=== PATIENT | male | born 1955 | race Caucasian/White ===

== ENCOUNTER → 2018-12-05 | Outpatient (CLI) | payer OTHER ==
--- NOTE | 2018-12-05 14:18 | CTL ---
EXAMINATION TYPE: CT Low Dose Lung DATE OF EXAM ORDERED: 12/05/2018 HISTORY: Personal history tobacco use. Lung cancer screening CT DLP: [address] CTDI: 3.14 mGy Automated exposure control for dose reduction was used. Axial imaging performed, patient unable to li e on his back, some patient was scanned on his side. SCREENING VISIT: 1 COMPARISON: None TECHNIQUE: Low dose computed tomography scan was performed through the chest at 1 mm thick sections a nd reconstructed images in the coronal plane at [address] DIAGNOSTIC QUALITY: Limited, but interpretable FINDINGS: LUNG NODULES: Present, detailed below: 4 mm right upper lobe nodule on axial image 55 and the subpleu ral location anteriorly, possibly axial image 59 similar-appearing nodule as on axial image 50 in the right upper lobe. LUNGS: COPD: Severity: Mild Fibrosis: Severity: None Lymph nodes: Nonenlarged Other findings: Posterior diaphragmatic hernias on the right and left contain fat RIGHT PLEURAL SPACE: Effusion: None Calcification: None Thickening: None Pneumothorax: None LEFT PLEURAL SPACE: Effusion: None Calcification: None Thickening: None Pneumothorax: None HEART: Heart Size: Normal Coronary calcification: Moderate Pericardial effusion: None OTHER FINDINGS: Upper abdomen: Atheromatous aorta. Bony thorax: Degenerative disc changes in the visualized spine. Supraclavicular region: Unremarkable Other: IMPRESSION: Nodules in the right upper lobe are under 5 mm in size and are low risk, benign appearanc e FOLLOW UP CT CHEST RECOMMENDATION: [address] LUNG RAD: 2
== END | disposition home or self-care (01) ==
LOC: RADCTMAIN 12:33
PROVIDERS: ATTEND Internal Medicine Hematology & Oncology
DX: R91.8 Other nonspecific abnormal finding of lung field (principal); Z87.891 Personal history of nicotine dependence

== ENCOUNTER → 2019-07-30 | Outpatient (CLI) | payer OTHER ==
--- NOTE | 2019-07-30 10:53 | CT ---
EXAMINATION TYPE: CT chest w con DATE OF EXAM: 07/30/2019 COMPARISON: Low-dose lung screening CT December 05, 2018. HISTORY: Pulmonary nodule CT DLP: 689 mGycm. Automated Exposure Control for Dose Reduction was Utilized. TECHNIQUE: CT scan of the thorax is performed following with IV Contrast, patient injected with 100 mL of Isovue 300. FINDINGS: LUNGS: There are 2-3 small anterior right upper lobe nodules coronal image 54 measuring under 4 mm in size. There is dependent atelectasis right lung base. Slightly elevated left hemidiaphragm. Some lauren ear scarring or atelectasis laterally left mid lung. Some respiratory motion artifact degradation upp er lungs for reference axial image 11. No definitive new greater than 5 mm nodules or masses. No pleu ral effusion or pneumothorax. MEDIASTINUM: There are no greater than 1 cm hilar or mediastinal lymph nodes. No pericardial effus ion is seen. Cardiomegaly with fairly severe right atrial dilatation. There is moderate right ventri cular dilatation. Main pulmonary artery is dilated at 3.3 cm axial image 26. OTHER: Mild multilevel spurring. IMPRESSION: Stable tiny nodules right upper lobe. No new or enlarging nodules are evident. Cardiomega ly with right sided enlargement redemonstrated.
== END ==
LOC: RADCTMAIN 08:53
PROVIDERS: ATTEND Internal Medicine Hematology & Oncology
DX: I51.7 Cardiomegaly (principal); R91.8 Other nonspecific abnormal finding of lung field
CPT/HCPCS: 82565; 84520; 71260; 36415; Q9967